=== PATIENT | female | born 1950 | race Caucasian/White ===

== ENCOUNTER → 2025-11-07 | Outpatient (CLI) | payer MEDICARE ==
[~2025-11-07] MED LIST: GADOTERATE MEGLUMINE 10 MMOL/20 ML VIAL IV ONE
--- NOTE | 2025-11-07 23:17 | HMCIMG ---
EXAMINATION: MRI Abdomen With and Without Contrast Clinical Indication: Cyst of the kidney. Technique: Multiplanar, multisequence MRI of the abdomen was performed before and after intravenous gadolinium-based contrast administration, including T1, T2, fat-suppressed, and post-contrast dynamic sequences. Comparison: No prior MRI studies available for comparison. Contrast: 17 mL of clear scan intravenous was administered. Findings: Liver and Gallbladder: Gallbladder is unremarkable. Liver is unremarkable. Common bile duct measures 5 mm with smooth distal tapering. Pancreas: Two small cystic lesions are noted in the distal pancreatic body, measuring approximately 3 mm and 4 5 mm, respectively. Both are T2 hyperintense and T1 hypointense, without main pancreatic ductal dilatation or peripancreatic fluid. 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 No post-contrast enhancement is observed in these cysts. Adrenal Glands: Left adrenal demonstrates a nodule measuring 1.3 0.9 cm with heterogeneous enhancement. The right adrenal shows a medial limb nodule measuring 4 5 mm with homogeneous enhancement. Kidneys: Left kidney contains multiple simple T2 hyperintense, T1 hypointense cystic lesions, largest in the interpolar region measuring 1 cm. Non-enhancement in them. Right kidney demonstrates a complex, partly exophytic lower polar mass measuring approximately 3.2 2.8 2.7 cm. This lesion is predominantly T2 hyperintense with multiple internal T2 hypointense septations and nodules, associated perinephric space edema, T1 hypointense, and demonstrates diffusion restriction. Post-contrast sequences show heterogeneous enhancement with multiple avidly enhancing areas and interspersed non-enhancing regions. Delayed phase images demonstrate washout. Bowel: Colonic diverticula are noted without evidence of diverticulitis. Other Structures: Spleen, pancreas parenchyma aside from cysts, and retroperitoneal structures are unremarkable. Impression: * Complex enhancing mass in the lower pole of the right kidney measuring 3.2 2.8 2.7 cm with heterogeneous enhancement, internal septations and nodules, diffusion restriction, and washout on delayed imaging. Imaging features are consistent with renal cell carcinoma. Prompt urology referral is recommended for further management, including potential surgical intervention or biopsy as clinically indicated. * Bilateral adrenal nodules: left adrenal nodule (1.3 0.9 cm) with heterogeneous enhancement and right adrenal medial limb nodule (4 5 mm) with homogeneous enhancement. Findings are indeterminate. Endocrinology correlation and further characterization with dedicated adrenal protocol imaging or follow-up in 36 months is recommended. * Multiple Bosniak class I simple cysts in the left kidney, largest 1 cm, not enhancing; no immediate intervention required. 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 Recommend follow-up MRI or MRCP in 612 months to assess for stability or interval changes per IPMN surveillance guidelines. /Jasper
== END | disposition home or self-care (01) ==
LOC: RAH 12:04
PROVIDERS: ATTEND Internal Medicine
DX: N28.1 Cyst of kidney, acquired (principal); E27.8 Other specified disorders of adrenal gland; K86.2 Cyst of pancreas
CPT/HCPCS: 74183; A9575